=== PATIENT | female | born 1930 | race Caucasian/White ===

== ENCOUNTER → 2016-12-23 | Outpatient (CLI) | payer MEDICARE ==
[~2016-12-23] MED LIST: CALCTAB6 PO; LEVO10VL PO; MULTCAP11 PO; RALO1TAB PO; VITA1CAP40 PO; ZOLO100T PO
--- NOTE | 2016-12-23 18:02 | REP ---
MAXILLOFACIAL CT WITHOUT CONTRAST: HISTORY: Chronic rhinitis. Minimal mucosal thickening is present in the left maxillary sinus. The remaining sinuses are clear. The ostiomeatal units are patent. The middle and inferior nasal turbinates are partially paradoxical. There is estrella bullosa of the middle nasal turbinates. There is mild deviation of the nasal septum to the right. A spur is present arising from the right side of the nasal septum. The spur abuts the lateral aspect of the right nasal passage. The cribriform plate, medial casillas of the orbits and optic canals are intact. The carotid canals form a segment of the posterolateral casillas of the sphenoid sinus. The left sphenoid sinus septum inserts into the left internal carotid canal wall. IMPRESSION: Sinus mucosal thickening is described above. Signed by Mika Ac MD 12/23/2016 06:15 P
== END ==
LOC: M RAD 17:17
PROVIDERS: ATTEND Otolaryngology
DX: J31.0 Chronic rhinitis (principal)